=== PATIENT | female | born 1965 | race Caucasian/White ===

== ENCOUNTER 2023-03-28 10:34 | Emergency (ER) | payer OTHER ==
[2023-03-28] MEDS ORDERED: Morphine 2 MG/ML SYRINGE IM ONE (10:50)
[2023-03-28] MEDS: Ketorolac 60 MG/2 ML SDV IM ONE (11:35)
[2023-03-28] MEDS: Acetaminophen/HYDROcodone 325-5 MG Tab PO ONE (11:35)
[2023-03-28] MEDS ORDERED: traMADol 50 MG Tab ONE (11:45)
== END 2023-03-28 12:00 | disposition home or self-care (01) ==
LOC: LB.ED 10:34
DX: S90.31XA Contusion of right foot, initial encounter (principal); X50.1XXA Overexertion from prolonged static or awkward postures, initial encounter
CPT/HCPCS: 73630-RT; 99283; A9270-GY